=== PATIENT | male | born 1960 | race Caucasian/White ===

== ENCOUNTER 2021-06-08 09:16 | Emergency (ER) | payer BC, SELFPAY ==
[2021-06-08 09:19] VITALS: BP 158/97; PULSE 99; RESP 17; TEMP 37; O2SAT 92; BMI 37.0
[2021-06-08 09:38] VITALS: O2SAT 93
[2021-06-08 09:41] VITALS: BP 158/97; PULSE 99; RESP 16; TEMP 37; O2SAT 93
--- NOTE | 2021-06-08 10:05 | EDS_ITS ---
HPI History of Present Illness Chief Complaint: Cold Sx Informant: patient Narrative Narrative: Patient presents Requesting monoclonal therapy for Covid or referral. He has myalgias fever and a very slight cough. He had some nausea and diarrhea but those symptoms are gone. His first symptoms started on Friday the 04 of June. He has exposure to a son-in-law and daughter with Covid. Nothing makes his symptoms worse. Tylenol does help his symptoms. Although he is coughing he is not actually short of breath. No hemoptysis. No chronic medical conditions other than obesity No medications No allergies No recent surgery Non-smoker lives at home with [facility] Medical History no medical history Home Medications NK 06/08/21 [History Last Taken Unknown] Allergy/AdvReac Type Severity Reaction Status Date / Time No Known Allergies Allergy Verified 06/08/21 09:16 Surgical History no surgical history Social History Smoking Status: Never smoker ROS ROS ED Constitutional Constitutional ED: Reports fever(s) Eyes Eyes: Denies blurry vision ENT ENT ED: Reports rhinorrhea; Denies sore throat Cardiovascular Cardiovascular: Denies chest pain or palpitations Respiratory/Chest Respiratory/Chest: Reports cough; Denies dyspnea or sputum Gastrointestinal Gastrointestinal: Reports diarrhea and nausea; Denies abdominal pain or vomiting Genitourinary Genitourinary ED: Denies dysuria Musculoskeletal Musculoskeletal: Reports myalgias Integumentary Denies rash Neurologic Neurologic: Reports headache(s); Denies paresthesias or weakness Psychiatric Psychiatric: Denies depression Endocrine Endocrinology: Denies polydipsia or polyuria Hematologic/Lymphatic Hematologic/Lymphatic: Denies easy bleeding or easy bruising Allergic/Immunologic Allergic/Immunologic ED: Denies mouth swelling or urticaria EXAM Physical Exam Const Vital Signs: 06/08/21 09:19 06/08/21 09:38 06/08/21 09:41 Temperature 98.6 F 98.6 F Temperature Source Oral Temporal Pulse Rate 99 99 Respiratory Rate 17 16 Respiratory Effort Normal Non-Labored Respiratory Depth Normal Respiratory Pattern Normal Blood Pressure 158/97 H 158/97 H Blood Pressure Mean 117 117 Pulse Ox 92 93 Oxygen Delivery Method Room Air Room Air Room Air Positive well nourished and well developed General Appearance ED: well developed and NAD HEENT Reports moist mucous membranes atraumatic Eyes General Eye ED: Negative for pale conjunctiva or scleral icterus Neck no meningeal signs and no JVD Resp normal respiratory effort and clear to auscultation bilaterally Auscultation: Negative for rales, rhonchi or wheezes Cardio regular rate and regular rhythm GI non-tender and non-distended Palpation: soft Back/Spine no CVA tenderness and normal to inspection Extremity normal to inspection General Extremety ED: Negative for edema or tenderness General Extremity: Negative for edema Neuro Sensorium / Orientation: alert; Negative for lethargic or stuporous Psych mental status grossly normal Skin Lesions: no lesions Rashes: no rashes MDM MDM MDM Narrative Medical decision making narrative: Patient had a positive home Covid test on Friday. He then went to [facility] and had a PCR test done on Friday. He is supposed to get the results today. We discussed doing another test here but I believe his PCR is likely the better test. I will refer him to monoclonal therapy as he has symptoms of Covid, known exposure to Covid, one positive he does have O2 sat monitor at home and has been reading normal. Test and another one pending. I think he likely does have Covid. He has criteria and obesity for monoclonal therapy. Discharge Plan Triage Chief Complaint: Cold Sx ED Provider: Jonathon German Dx/Rx/DC Orders Clinical Impression: COVID Instructions: Caring for Someone Who Has COVID-19 Prescriptions: No Action NK RF: 0 Other Ambulatory Orders: COVID Outpatient Monoclonal Antibody Referral (Routine) Timeframe: 1 Day Facility: [facility] - Location: [facility] Ordered By: Dr. Jonathon German Primary Care Provider: Care Physician,No Primary Referrals: Care Physician,No Primary [Primary Care Provider] - Activity Restrictions/Additional Instructions: Follow-up with your primary physician and monoclonal therapy as scheduled. Return to the emergency department with worsening symptoms, dyspnea, decreasing oxygen saturations. Disposition Disposition: Home, Self Care
== END 2021-06-08 10:28 | disposition home or self-care (01) ==
PROVIDERS: Emergency Provider Emergency Medicine
DX: U07.1 COVID-19 (principal); E66.9 Obesity, unspecified
CPT/HCPCS: 99282

== ENCOUNTER 2021-06-11 09:05 | Outpatient (CLI) | payer BC, SELFPAY ==
[2021-06-11] MEDS: 0.9% Saline Lock 10 ML Syringe IV (09:26)
[2021-06-11 09:28] VITALS: BP 149/79; PULSE 92; RESP 18; TEMP 37.4; O2SAT 94; BMI 35.4
[2021-06-11 10:15] VITALS: BP 151/69; PULSE 95; RESP 18; TEMP 38.1; O2SAT 93
[2021-06-11 11:10] VITALS: BP 157/78; PULSE 98; RESP 18; TEMP 37.1; O2SAT 100
== END 2021-06-11 11:15 | disposition home or self-care (01) ==
LOC: MS3OUT 09:06 → MS3 09:06
PROVIDERS: Referring Provider Nurse Practitioner Acute Care; Visit Provider Nurse Practitioner Acute Care
DX: Z23 Encounter for immunization (principal); U07.1 COVID-19
CPT/HCPCS: J7050; M0245; Q0245; A4216

== ENCOUNTER 2021-06-12 08:17 | Emergency (ER) | payer BC, SELFPAY ==
[2021-06-12] VITALS (8 sets, daily range): BP systolic 129–143; BP diastolic 80–96; PULSE 71–89; RESP 20–22; TEMP 37–37.4; O2SAT 87–95; BMI 35.4
--- NOTE | 2021-06-12 08:32 | RAD_ITS ---
STUDY: X-RAY CHEST REASON FOR EXAM: Male, 60 years old. Increasing shortness of breath over the last week TECHNIQUE: AP COMPARISON: None. FINDINGS: EKG leads project over the chest. Multifocal infiltrates with features commonly reported with COVID pneumonia. There is no demonstrated pleural abnormality. Normal size heart. Normal mediastinum and alberto. Normal visualized pulmonary arteries. Normal visualized aortic arch and descending thoracic aorta. Normal visualized thoracic spine. Normal visualized ribs, clavicles, and shoulders. There is no demonstrated abnormality of the visualized soft tissue structures of the upper abdomen. RAD/Chest 1 View (Portable) IMPRESSION: Multifocal infiltrates with features commonly reported with COVID pneumonia. Electronically Signed: James Chu MD ([place]) at 9:11 EST , Service support ,
--- NOTE | 2021-06-12 08:33 | EDS_ITS ---
HPI History of Present Illness Chief Complaint: Shortness of Breath Informant: patient Onset/Context/Timing Onset: Days Context: gradual Timing: Continuous Quality: Positive for Dyspnea on exertion Current Severity: Mild Maximum Severity: Mild Worsened by: Exertion Relieved by: Nothing Associated Symptoms cough Chest Pain: Positive for None Narrative Narrative: 60-year-old male Covid positive symptoms he is on day 9. States he received monoclonal antibody therapy yesterday. He is just feeling more short of breath. No prior history of DVT or PE no hemoptysis. No chest pain. His symptoms of nausea and fevers is resolving. PE Risk Factors: Negative for Cancer, OCP + Smoking + > 35, Prior DVT or PE, Recent immobilization, Recent surgery and Recent travel Prior similar symptoms: No Recent Illness/Hospitalization: No PFSH PFSH Medical History (Updated 06/12/21 @ 10:[address] Juan M Richards MD) COVID-19 Medical History no medical history no medical history Home Medications dexamethasone [Decadron] 6 mg PO DAILY 10 Days #10 tab 06/12/21 [Rx Last Taken Unknown] Allergy/AdvReac Type Severity Reaction Status Date / Time No Known Allergies Allergy Verified 06/12/21 08:20 Social History Smoking Status: Never smoker ROS ROS ED ROS Narrative Cough. Fever is have resolved. Vomiting is resolved. Shortness of breath. Review of Systems ROS Unobtainable: Denies due to encephalopathy Constitutional Constitutional ED: Reports fever(s); Denies chills Eyes Eyes: Denies change in vision ENT ENT ED: Denies ear pain or sore throat Cardiovascular Cardiovascular: Denies chest pain Respiratory/Chest Respiratory/Chest: Reports cough and dyspnea Gastrointestinal Gastrointestinal: Reports nausea and vomiting; Denies abdominal pain or diarrhea Genitourinary Genitourinary ED: Denies dysuria Musculoskeletal Musculoskeletal: Reports myalgias Integumentary Denies rash Neurologic Neurologic: Denies headache(s) Psychiatric Psychiatric: Denies depression Endocrine Endocrinology: Denies polyuria Hematologic/Lymphatic Hematologic/Lymphatic: Denies easy bruising Allergic/Immunologic Allergic/Immunologic ED: Denies urticaria EXAM Physical Exam Narrative Exam Narrative: Middle-aged male no acute distress MS pulse ox listed as 87% on room air is obviously hypoxic. H EENT exam is unremarkable. Neck nontender. Lungs clear to auscultation bilaterally. Heart regular rhythm no murmur. Abdomen soft nontender. Patient moving all 4 extremities. Calves are nontender without edema or cords. Neurologically is awake and alert. Moving all 4 extremities. Const Vital Signs: 06/12/21 08:18 06/12/21 08:43 06/12/21 08:45 Temperature 98.6 F 98.6 F Temperature Source Temporal Temporal Pulse Rate 89 89 Respiratory Rate 20 H 20 H Respiratory Effort Short of Breath Labored Respiratory Depth Normal Respiratory Pattern Tachypnea Blood Pressure 143/96 H 143/96 H Blood Pressure Mean 111 111 Pulse Ox 87 90 Oxygen Delivery Method Room Air Room Air Oxygen Flow Rate (L/min) 06/12/21 09:37 06/12/21 10:21 Temperature 98.9 F Temperature Source Oral Pulse Rate 71 Respiratory Rate 22 H Respiratory Effort Respiratory Depth Respiratory Pattern Blood Pressure 129/80 H Blood Pressure Mean 96 Pulse Ox 88 95 Oxygen Delivery Method Nasal Cannula Nasal Cannula Oxygen Flow Rate (L/min) 2 2 Positive well nourished, well developed and obese; Negative for cachectic, contractures or unkempt General Appearance ED: well developed and NAD; Negative for unkempt, cachectic, contractures or pallor Nutritional Appearance: obese; Negative for cachectic HEENT Reports moist mucous membranes atraumatic; Negative for trauma or tenderness Eyes PERRL and EOMs intact bilaterally Neck no lymphadenopathy, supple, no meningeal signs and no JVD General: Negative for tenderness Resp normal respiratory effort and clear to auscultation bilaterally Auscultation: Negative for rales, rhonchi or wheezes Cardio regular rate, regular rhythm, S1 normal heart sound, S2 normal heart sound and no murmurs GI non-tender, non-distended and no masses Auscultation: normoactive bowel sounds Palpation: soft; Negative for tender, guarding or rebound tenderness present Back/Spine no CVA tenderness and normal to inspection General Back: Negative for CVA tenderness Extremity normal to inspection General Extremety ED: Negative for edema or tenderness General Extremity: Negative for edema Neuro oriented x3 Sensorium / Orientation: alert, oriented to person, oriented to place and oriented to time; Negative for orientation impaired, confused, lethargic or stuporous Motor Exam: strength 5/5 throughout Psych mental status grossly normal Appearance: Negative for unkempt Thought Process: normal thought process Skin no wounds General Skin Exam: Negative for jaundice or pallor Lesions: no lesions Rashes: no rashes MDM MDM MDM Narrative Medical decision making narrative: Middle-age male no acute distress. Pulse ox 87% on room air consistent with hypoxia. Tested Covid positive last week and has had symptoms now on his ninth day. He received monoclonal antibody therapy yesterday. He will be treated with p.o. Decadron. Labs and chest x-ray are being obtained. regulatory services consultant discussed with the patient and he is being set up with home oxygen. He will be discharged home on daily Decadron. Home oxygen. Outpatient follow-up. Again he has already received monoclonal antibody therapy. Repeat exam patient is doing well at 11:42 AM and is comfortable being discharged home. He knows return if worse. Lab Data Attestation: I reviewed the patient's lab results. Lab results narrative: CBC shows a normal white count of 6.9. Hemoglobin is 16. Platelets 195. Electrolytes unremarkable gap of 6 normal BUN and creatinine. Glucose of 141. Chest x-ray shows diffuse bilateral infiltrates consistent with Covid pneumonitis. Labs: Laboratory Results - last 24 hr 06/12/21 06/12/21 06/12/21 08:36 08:36 08:36 WBC 6.9 RBC 5.17 Hgb 16.0 Hct 46.2 MCV 89.4 MCH 30.9 MCHC 34.6 RDW Std Deviation 41.3 RDW Coeff of Idalmis 12.5 Plt Count 195 MPV 9.5 Immature Gran % (Auto) 0.400 Neut % (Auto) 74.0 H Lymph % (Auto) 17.7 L [place] % (Auto) 7.8 Eos % (Auto) 0.0 Baso % (Auto) 0.1 Absolute Neuts (auto) 5.1 Absolute Lymphs (auto) 1.22 Nucleated RBC % 0 D-Dimer Quant (PE/DVT) 0.68 H* Sodium 135 L Potassium 3.8 Chloride 103 Carbon Dioxide 26.0 Anion Gap 6 BUN 18 Creatinine 1.03 Estim Creat Clear Calc 77.22 Est GFR (MDRD) Af Amer 95 Est GFR (MDRD) Non-Af 78 BUN/Creatinine Ratio 17.5 Glucose 141 H Calcium 8.6 Radiography Chest X-Ray - ED: 1 View, Read by ED Physician, Read by Radiologist, Heart, Lungs, Mediastinum, Bony Structures, Right Infiltrate and Left Infiltrate Diagnostic Testing: Clinical Impression(s) from Imaging Studies Chest X-Ray 06/12/21 08:32 IMPRESSION: Multifocal infiltrates with features commonly reported with COVID pneumonia. Electronically Signed: James Chu MD (Brooks) at 9:11 EST , Service support , Chest CTA 06/12/21 10:20 IMPRESSION: No demonstrated PE, or thoracic aortic aneurysm or dissection Diffuse interstitial and airspace opacifications of both lung chavez without effusions. This is highly suggestive of Covid pneumonia. Chronic bronchitis Calcified coronary vessels Fatty liver Cholelithiasis Electronically Signed: Naren Savage MD at 11:14 EST , Service support , Portable chest x-ray single view interpreted both by myself and the radiologist shows bilateral infiltrates consistent with Covid pneumonitis. CT of the chest is read by the radiologist and reviewed by me shows Covid pneumonitis but no pulmonary emboli. Discharge Plan Triage Chief Complaint: Shortness of Breath ED Provider: Juan M Richards Dx/Rx/DC Orders Clinical Impression: COVID Instructions: Human Coronaviruses Prescriptions: New dexamethasone [Decadron] 6 mg tablet 6 mg PO DAILY 10 Days Qty: 10 RF: 0 Primary Care Provider: Care Physician,No Primary Referrals: Care Physician,No Primary [Primary Care Provider] - Activity Restrictions/Additional Instructions: Plenty of fluids and rest. Decadron daily to decrease the inflammation in your lungs. Follow-up with your doctor if not improving or return the emergency department if feeling a lot worse. Use the home oxygen 2 L at a time may turn it up as needed but if you are consistently above 4 L should need to come back to be reevaluated. Also return if you are feeling a lot worse or if your pulse ox is running below 90% consistently on the oxygen. Disposition Disposition: Home, Self Care
[2021-06-12] MEDS: dexAMETHasone 4 MG Tablet 6 MG PO (08:43)
[2021-06-12 08:45] LABS: Absolute Lymphocyte Count 1.22 X10^3/uL (0.83-4.51); Absolute Neutrophil Count 5.1 X10^3/uL (2.0-7.7); Basophil# 0.01 X10^3/uL; Basophil% 0.1 % (0-1); Hematocrit 46.2 % (40-54); Lymphocyte # 1.22 X10^3/ul (0.83-4.51); Lymphocyte % 17.7 % (19-41); Mean Corp Hgb Conc 34.6 g/dL (32-36); Mean Corpuscular Hgb 30.9 pg (27.0-32.0); Mean Corpuscular Volume 89.4 fL (80-94); Mean Platelet Vol. 9.5 fl (6.2-12.0); Monocyte# 0.54 X10^3/uL; Monocyte% 7.8 % (0-10); NRBC Flagged by Analyzer 0 % (0-5); Neutrophil # 5.09 X10^3/uL (2.7-7.7); Platelet Count 195 K/mm3 (150-450); RBC Distribution Width CV 12.5 % (11.6-14.6); RBC Distribution Width SD 41.3 fl (35.1-43.9); Red Blood Count 5.17 M/mm3 (4.6-6.2); White Blood Count 6.9 K/mm3 (4.4-11.0)
[2021-06-12 08:57] LABS: Anion Gap 6 (5-15); BUN 18 mg/dL (7-18); BUN/Creat Ratio 17.5 RATIO (10-20); Calcium,Total 8.6 mg/dL (8.5-10.1); Chloride 103 mmol/L (98-107); Creatinine, Serum 1.03 mg/dL (0.70-1.30); EST Glomerular Filtration Rate 78 mL/min (>60); Est Glom Filt Rate - Afr Amer 95 mL/min (>60); Estimated Creatinine Clearance 77.22 ml/min; Glucose 141 mg/dL (74-106); Potassium 3.8 mmol/L (3.5-5.1); Sodium Level 135 mmol/L (136-145)
[2021-06-12 10:18] LABS: D-Dimer Quantitative (DVT/PE) 0.68 FEU/ug/m (0.27-0.49)
--- NOTE | 2021-06-12 10:20 | CT_ITS ---
STUDY: CTA CHEST REASON FOR EXAM: Male, 60 years old. Hypoxia, elevated d-dimer RADIATION DOSAGE (If Supplied By Facility): CTDIvol = ( 13.85 ) mGy, DLP = ( 507.01 ) mGycm TECHNIQUE: The examination was performed with the intravenous administration of IV 100mL Isovue-370. Post-processing of the angiographic images was performed, with multiplanar reformation and 3D reconstruction. Individualized dose optimization techniques were used for this CT. COMPARISON: None. FINDINGS: Normal enhancement of the main pulmonary artery and right and left pulmonary arteries. Normal enhancement of the bilateral peripheral pulmonary arteries. There is no demonstrated pulmonary embolism. Normal thoracic aorta and visualized great vessels. There is no demonstrated aortic dissection. Normal heart and pericardium. There are calcifications of the coronary arteries. There are visualized mediastinal lymph nodes, which are within normal size limits, and with normal morphology. Normal hilar regions. There is peribronchial thickening. The lungs are well expanded. Diffuse interstitial and airspace opacifications scattered throughout both lung chavez without effusions. This pattern of opacification is consistent with and suspicious for Covid pneumonia. Normal pleura. Normal chest wall structures. There are degenerative changes of thoracic spine. Limited cuts through the upper abdomen show fatty infiltration of the liver and multiple gallstones CT/CTA Chest W/WO Contrast IMPRESSION: No demonstrated PE, or thoracic aortic aneurysm or dissection Diffuse interstitial and airspace opacifications of both lung chavez without effusions. This is highly suggestive of Covid pneumonia. Chronic bronchitis Calcified coronary vessels Fatty liver Cholelithiasis Electronically Signed: Naren Savage MD at 11:14 EST , Service support ,
--- NOTE | 2021-06-12 11:43 | CM.ED ---
Addendum entered by Josie Sanford 06/12/21 16:48: ROYAL refaxed the referral and made multiple phone calls and left voice mail for Martínez at [facility]. Martínez called back and said that the compressed air pile driver operator is on his way and will be here in 45 minutes. He said that they will call to come and set up service in the home as the provider is from [facility]. ROYAL updated RN and emt/dispatcher Josie DAHL Original Note: ROYAL Note ROYAL was advised by staff that patient needs home oxygen. ROYAL called [facility] reports that they do not have home oxygen and that this senior writer needs to look elsewhere. ROYAL called [facility] and spoke to Martínez. They have home oxygen . ROYAL faxed referral to [facility]. ROYAL will wait to hear from from airborne and air delivery specialist for update, per Martínez. ROYAL updated emt/dispatcher. Plan: Home Oxygen Josie DAHL
--- NOTE | 2021-06-13 14:30 | CASEMGMT ---
MARIOLA BUTTS ED COVID Home O2 Follow-up: MARIOLA BUTTS attempted to complete follow-up phone call. No answer, voice message left with return contact information.
--- NOTE | 2021-06-15 14:12 | CASEMGMT ---
AMRIOLA BUTTS ED COVID Home O2 Follow-up: This RN CM contacted pt via phone regarding home O2 set-up. Pt states he is doing fine. Denies any SOB. Report his PO to be 92% on 2.5-3l/min. Pt states he is eating, drinking, and taking the decadron as prescribed. Pt states he has not contacted Dr. Foley or Dr. Friedman for a follow-up appointment. Pt provided Dr. Foley's office phone number to schedule follow-up. Pt denies any further questions or concerns at this time. Gia Dougherty RN CM
== END 2021-06-12 17:27 | disposition home or self-care (01) ==
PROVIDERS: Emergency Provider Emergency Medicine
DX: U07.1 COVID-19 (principal); J12.82 Pneumonia due to coronavirus disease 2019; R09.02 Hypoxemia; E66.9 Obesity, unspecified
CPT/HCPCS: 71045; 71275; 80048; 85025; 85379; 99284; Q9967

== ENCOUNTER 2021-06-17 08:51 | Inpatient (IN) | payer BC, SELFPAY ==
[2021-06-17] VITALS (17 sets, daily range): BP systolic 112–128; BP diastolic 71–87; PULSE 65–102; RESP 18–37; TEMP 35.9–37.3; O2SAT 87–96; BMI 34.8; BMI 33.7
--- NOTE | 2021-06-17 09:16 | EKG12_ITS ---
Test Reason : SOB Blood Pressure : / mmHG Vent. Rate : 080 BPM Atrial Rate : 080 BPM P-R Int : 178 ms QRS Dur : 102 ms QT Int : 380 ms P-R-T Axes : 041 -14 002 degrees QTc Int : 438 ms Normal sinus rhythm Normal ECG Confirmed by THEODORE CASAS, GILDA ([id number]), newspaper managing editor FLO STEVEN ([id number]) on 06/19/2021 9:13:08 AM Referred By: ADELA Confirmed By:GILDA JAIMES MD
--- NOTE | 2021-06-17 09:16 | CT_ITS ---
STUDY: CTA CHEST REASON FOR EXAM: Male, 60 years old. SOB, Hypoxia RADIATION DOSAGE (If Supplied By Facility): CTDIvol = ( 14.91 ) mGy, DLP = ( 552.42 ) mGycm TECHNIQUE: The examination was performed with the intravenous administration of IV 100mL Isovue-370. Post-processing of the angiographic images was performed, with multiplanar reformation and 3D reconstruction. Individualized dose optimization techniques were used for this CT. COMPARISON: CT angiogram chest June 12, 2021, chest x-ray June 12, 2021 FINDINGS: Normal enhancement of the main pulmonary artery and right and left pulmonary arteries. Normal enhancement of the bilateral peripheral pulmonary arteries. There is no demonstrated pulmonary embolism. There is a bovine arch or common take off of the bilateral common carotid arteries. The left vertebral artery has its takeoff low at the level of the subclavian at the arch. There is no demonstrated aortic dissection. There is mild cardiac enlargement there is coronary calcification. There are nonspecific reactive lymph nodes in the mediastinum. Normal hilar regions. Normal visualized trachea and bronchi. There persistent multifocal groundglass opacities throughout the lungs. This is worse in the left apex and left lung base compared to prior study. Normal pleura. Normal chest wall structures. There are degenerative changes of thoracic spine. The liver is enlarged and fatty infiltrated. There are multiple gallstones in the gallbladder measuring up to 2 cm. IMPRESSION : Multifocal pneumonia suspicious for persistent slightly worse Covid pneumonia. No pulmonary embolism. Mild cardiac enlargement and coronary calcification. Hepatic steatosis. Cholelithiasis. Electronically Signed: Carol Araujo MD at 9:55 EST Tel , Service support , CT/CTA Chest W/WO Contrast
--- NOTE | 2021-06-17 09:17 | ED.VIS.DYS ---
HPI History of Present Illness Chief Complaint: Shortness of Breath Informant: patient and spouse/S.O. Narrative Narrative: This patient returns with worsening hypoxia and dyspnea. He started Covid symptoms on the of this month. He has been on Decadron and home oxygen for about 5 days. He has been on 4 L and his sats have been dropping to about 87%. He dropped to 84% on 4 L here. He is not having chest pain. He has no nausea vomiting diarrhea although his appetite is a bit down. He has been eating yogurt applesauce and drinking fluids. No significant myalgias. He is not having chest pain. No history of DVT or PE. He has had some travels in the [place] and to [place] within the last few months though. He is on Decadron. He did have monoclonal therapy as an outpatient. He did not have a vaccine. [facility] Medical History COVID-19 Home Medications dexamethasone [Decadron] 6 mg PO DAILY 10 Days #10 tab 06/12/21 [Rx Last Taken Unknown] Allergy/AdvReac Type Severity Reaction Status Date / Time No Known Allergies Allergy Verified 06/17/21 08:51 Social History Smoking Status: Never smoker ROS ROS ED Constitutional Constitutional ED: Reports chills Eyes Eyes: Denies change in vision ENT ENT ED: Denies rhinorrhea Cardiovascular Cardiovascular: Denies chest pain Respiratory/Chest Respiratory/Chest: Reports cough and dyspnea; Denies sputum Gastrointestinal Gastrointestinal: Denies abdominal pain, diarrhea, nausea or vomiting Genitourinary Genitourinary ED: Denies dysuria Musculoskeletal Musculoskeletal: Denies myalgias Integumentary Denies rash Neurologic Neurologic: Reports other Details: No focal weakness but he does have generalized weakness and malaise. ; Denies headache(s), paresthesias or weakness Endocrine Endocrinology: Denies polydipsia or polyuria Hematologic/Lymphatic Hematologic/Lymphatic: Denies easy bleeding or easy bruising Allergic/Immunologic Allergic/Immunologic ED: Denies mouth swelling or urticaria EXAM Physical Exam Const Vital Signs: 06/17/21 08:52 06/17/21 08:53 06/17/21 09:00 Temperature 96.6 F L 96.6 F L Temperature Source Temporal Temporal Pulse Rate 102 H 102 H Respiratory Rate 24 H 24 H Respiratory Effort Short of Breath Labored Blood Pressure 124/87 H 124/87 H Blood Pressure Mean 99 99 Pulse Ox 87 87 Oxygen Delivery Method Nasal Cannula Nasal Cannula Nasal Cannula Oxygen Flow Rate (L/min) 4 7 7 06/17/21 09:33 06/17/21 09:53 06/17/21 10:00 Temperature 98.9 F 98.9 F Temperature Source Temporal Temporal Pulse Rate 68 68 Respiratory Rate 37 H 37 H Respiratory Effort Blood Pressure 112/77 112/77 Blood Pressure Mean 88 88 Pulse Ox 93 92 92 Oxygen Delivery Method Nasal Cannula Nasal Cannula Oxygen Flow Rate (L/min) 7 7 7 Patient looks ill. His saturations are 91% on his 7 L now. He is awake alert appropriate not lethargic or sleepy. Positive well nourished and well developed General Appearance ED: well developed HEENT Reports dry mucous membranes HEENT Narrative: Mildly dry mucous membranes atraumatic Mouth ED: Yes dry mucous membranes Mouth: dry mucous membranes Eyes General Eye ED: Negative for pale conjunctiva or scleral icterus Neck no JVD Resp No normal respiratory effort and No clear to auscultation bilaterally Auscultation: rhonchi Cardio regular rate Rate: tachycardic GI non-tender and non-distended Palpation: soft Back/Spine no CVA tenderness Extremity General Extremety ED: Negative for edema or tenderness General Extremity: Negative for edema Neuro oriented x3 Sensorium / Orientation: alert Psych mental status grossly normal Skin Lesions: no lesions Rashes: no rashes MDM MDM MDM Narrative Medical decision making narrative: Patient's blood count shows hemoglobin 16.9. This might be a little hemoconcentration. White count is slightly elevated. Also due to hemoconcentration as well as steroid effect. Electrolytes overall look good. Glucose is mildly elevated 152. Lactate is high normal at 2.0. LFTs show no marked abnormalities. Troponin is negative. Procalcitonin is normal. ET scan of the chest shows signs of Covid but no sign of pulmonary embolus. However, patient is satting about 92% on 7 L. He desatted to 84% on 4 L. He is too hypoxic to send back home. I have hospitalist on page Lab Data Labs: Laboratory Results - last 24 hr 06/17/21 06/17/21 06/17/21 09:10 09:10 09:10 WBC 11.9 H RBC 5.59 Hgb 16.9 H Hct 48.3 MCV 86.4 MCH 30.2 MCHC 35.0 RDW Std Deviation 38.3 RDW Coeff of Idalmis 12.1 Plt Count 449 MPV 9.1 Immature Gran % (Auto) 0.400 Neut % (Auto) 74.5 H Lymph % (Auto) 11.4 L Butts % (Auto) 12.0 H Eos % (Auto) 1.4 Baso % (Auto) 0.3 Absolute Neuts (auto) 8.9 H Absolute Lymphs (auto) 1.36 Nucleated RBC % 0 Sodium 137 Potassium 3.6 Chloride 107 Carbon Dioxide 21.0 Anion Gap 9 BUN 26 H Creatinine 1.07 Estim Creat Clear Calc 74.33 Est GFR (MDRD) Af Amer 91 Est GFR (MDRD) Non-Af 75 BUN/Creatinine Ratio 24.3 H Glucose 152 H Lactic Acid 2.0 Calcium 9.4 Total Bilirubin 1.00 AST 47 H ALT 106 H Alkaline Phosphatase 68 Troponin I High Sens 5 Total Protein 7.8 Albumin 3.0 L Globulin 4.8 H Albumin/Globulin Ratio 0.6 L Procalcitonin 06/17/21 09:10 WBC RBC Hgb Hct MCV MCH MCHC RDW Std Deviation RDW Coeff of Idalmis Plt Count MPV Immature Gran % (Auto) Neut % (Auto) Lymph % (Auto) Butts % (Auto) Eos % (Auto) Baso % (Auto) Absolute Neuts (auto) Absolute Lymphs (auto) Nucleated RBC % Sodium Potassium Chloride Carbon Dioxide Anion Gap BUN Creatinine Estim Creat Clear Calc Est GFR (MDRD) Af Amer Est GFR (MDRD) Non-Af BUN/Creatinine Ratio Glucose Lactic Acid Calcium Total Bilirubin AST ALT Alkaline Phosphatase Troponin I High Sens Total Protein Albumin Globulin Albumin/Globulin Ratio Procalcitonin 0.08 Radiography Diagnostic Testing: Clinical Impression(s) from Imaging Studies Chest CTA 06/17/21 09:16 Discharge Plan Triage Chief Complaint: Shortness of Breath ED Provider: Jonathon German Dx/Rx/DC Orders Clinical Impression: Pneumonia due to 2019 novel coronavirus, Acute respiratory failure with hypoxia Prescriptions: No Action dexamethasone [Decadron] 6 mg tablet 6 mg PO DAILY 10 Days Qty: 10 RF: 0 Primary Care Provider: Care Physician,No Primary Referrals: Care Physician,No Primary [Primary Care Provider] - Disposition Disposition: Acute Care [facility]
[2021-06-17 09:24] LABS: Absolute Lymphocyte Count 1.36 X10^3/uL (0.83-4.51); Absolute Neutrophil Count 8.9 X10^3/uL (2.0-7.7); Basophil# 0.03 X10^3/uL; Basophil% 0.3 % (0-1); Eosinophil# 0.17 X10^3/uL; Eosinophils% 1.4 % (0-5); Hematocrit 48.3 % (40-54); Hemoglobin 16.9 g/dL (13.0-16.5); Lymphocyte # 1.36 X10^3/ul (0.83-4.51); Lymphocyte % 11.4 % (19-41); Mean Corpuscular Hgb 30.2 pg (27.0-32.0); Mean Corpuscular Volume 86.4 fL (80-94); Mean Platelet Vol. 9.1 fl (6.2-12.0); Monocyte# 1.43 X10^3/uL; NRBC Flagged by Analyzer 0 % (0-5); Neutrophil # 8.87 X10^3/uL (2.7-7.7); Neutrophil % 74.5 % (47-70); Platelet Count 449 K/mm3 (150-450); RBC Distribution Width CV 12.1 % (11.6-14.6); RBC Distribution Width SD 38.3 fl (35.1-43.9); Red Blood Count 5.59 M/mm3 (4.6-6.2); White Blood Count 11.9 K/mm3 (4.4-11.0)
[2021-06-17 09:51] LABS: ALB/GLOB Ratio 0.6 RATIO (0.9-2.4); AST(SGOT) 47 U/L (15-37); Alanine Aminotransfer ALT/SGPT 106 U/L (16-61); Alkaline Phosphatase 68 U/L (45-117); Anion Gap 9 (5-15); BUN 26 mg/dL (7-18); BUN/Creat Ratio 24.3 RATIO (10-20); Calcium,Total 9.4 mg/dL (8.5-10.1); Chloride 107 mmol/L (98-107); Creatinine, Serum 1.07 mg/dL (0.70-1.30); EST Glomerular Filtration Rate 75 mL/min (>60); Est Glom Filt Rate - Afr Amer 91 mL/min (>60); Estimated Creatinine Clearance 74.33 ml/min; Globulin 4.8 g/dL (2.2-4.2); Glucose 152 mg/dL (74-106); Potassium 3.6 mmol/L (3.5-5.1); Protein, Total 7.8 g/dL (6.4-8.2); Sodium Level 137 mmol/L (136-145); Troponin-I HS 5 pg/mL (3.0-78.0)
[2021-06-17 09:56] LABS: Procalcitonin 0.08 ng/mL (0.00-0.09)
[2021-06-17] MEDS: Furosemide 20 MG/2 ML VIAL IV (11:09)
[2021-06-17 13:21] LABS: Reflex Lactate? Y
[2021-06-17 14:19] LABS: Lactic Acid 1.4 mmol/L (0.4-1.9)
--- NOTE | 2021-06-17 15:48 | HP.PCM.HOS_ITS ---
HPI - General General Date of Admission: 06/17/21 HPI Narrative LEONCIO MUHAMMAD, is a 60 M who presents to the hospital with increasing shortness of breath. He started having symptoms for Covid around 06/04/2021 and then had monoclonal antibody infusion. He is unvaccinated. He had come to the hospital previously and was discharged on some oxygen as well as Decadron. He is taking for 5 doses of the Decadron prior to coming into the hospital but he has had increasing oxygen requirements at home for the last several days. He had a states that he feels fine, denies any fevers or chills. In the ER he did have a CTA of his chest which was negative for PE. [facility] Medical History (Updated 06/17/21 @ 15:[address] Valentino Arora MD) Skin cancer Home Medications dexamethasone [Decadron] 6 mg PO DAILY 10 Days #10 tab 06/12/21 [Rx Last Taken Unknown] Allergy/AdvReac Type Severity Reaction Status Date / Time No Known Allergies Allergy Verified 06/17/21 08:51 Family History (Updated 06/17/21 @ 15:[address] Valentino Arora MD) Other Heart disease no surgical history Social History Smoking Status: Never smoker ROS Constitutional Constitutional: Reports chills; Denies fatigue, fever(s) or malaise Eyes Eyes: Denies blurry vision ENT HEENT: Denies headache(s) or nasal discharge Cardiovascular Cardiovascular: Denies chest pain, dyspnea on exertion or syncope Respiratory/Chest Respiratory/Chest: Reports cough and shortness of breath at rest; Denies shortness of breath with exertion Gastrointestinal Gastrointestinal: Denies constipation, diarrhea, nausea or vomiting Genitourinary Genitourinary: Denies dysuria Neurologic Neurologic: Denies focal weakness, numbness or tremor(s) Psychiatric Psychiatric: Denies anxiety or depression Vital Signs Vital Signs Vital Signs: 06/17/21 08:52 06/17/21 08:53 06/17/21 09:00 Temperature 96.6 F L 96.6 F L Temperature Source Temporal Temporal Pulse Rate 102 H 102 H Respiratory Rate 24 H 24 H Respiratory Effort Short of Breath Labored Respiratory Depth Respiratory Pattern Blood Pressure 124/87 H 124/87 H Blood Pressure Mean 99 99 Blood Pressure Source Blood Pressure Position Blood Pressure Location Pulse Ox 87 87 Oxygen Delivery Method Nasal Cannula Nasal Cannula Nasal Cannula Oxygen Flow Rate (L/min) 4 7 7 06/17/21 09:33 06/17/21 09:53 06/17/21 10:00 Temperature 98.9 F 98.9 F Temperature Source Temporal Temporal Pulse Rate 68 68 Respiratory Rate 37 H 37 H Respiratory Effort Respiratory Depth Respiratory Pattern Blood Pressure 112/77 112/77 Blood Pressure Mean 88 88 Blood Pressure Source Blood Pressure Position Blood Pressure Location Pulse Ox 93 92 92 Oxygen Delivery Method Nasal Cannula Nasal Cannula Oxygen Flow Rate (L/min) 7 7 7 06/17/21 10:59 06/17/21 11:00 06/17/21 12:00 Temperature 98.9 F 98.9 F Temperature Source Temporal Temporal Pulse Rate 80 80 Respiratory Rate 20 H 20 H Respiratory Effort Respiratory Depth Respiratory Pattern Blood Pressure 128/81 H 128/81 H Blood Pressure Mean 96 96 Blood Pressure Source Blood Pressure Position Blood Pressure Location Pulse Ox 92 92 92 Oxygen Delivery Method Nasal Cannula Nasal Cannula Oxygen Flow Rate (L/min) 7 7 06/17/21 12:35 06/17/21 13:14 06/17/21 13:17 Temperature 97.9 F Temperature Source Temporal Pulse Rate 80 Respiratory Rate 18 18 Respiratory Effort Normal Respiratory Depth Normal Respiratory Pattern Normal Blood Pressure 114/71 Blood Pressure Mean 85 Blood Pressure Source Monitor Blood Pressure Position Semi-Fowlers Blood Pressure Location Left Arm Pulse Ox 93 96 Oxygen Delivery Method Nasal Cannula Nasal Cannula High Flow Oxygen Flow Rate (L/min) 7 8 8 Weight Weight: 229 lb Body Mass Index (BMI) 33.7 Physical Exam Const alert, oriented x3 and no apparent distress General Appearance: cooperative HEENT normocephalic and moist oral mucous membranes Eyes PERRL, EOMs intact bilaterally and conjunctivae normal Neck supple and no JVD Resp normal respiratory effort, no retractions, no use of accessory muscles and clear to auscultation bilaterally Auscultation: crackles; Negative for rales, rhonchi or wheezes Cardio regular rate, regular rhythm, S1 normal heart sound, S2 normal heart sound and no murmurs GI soft to palpation, non-tender and non-distended; Negative for hepatosplenomegaly Extremity no clubbing, cyanosis or edema Skin no rashes or lesions noted Neuro no focal motor deficits and no sensory deficits noted Psych affect normal Appearance: appropriate Results Lab / Micro Data Result Diagrams: 06/17/21 09:10 06/17/21 09:10 Labs: Laboratory Results - last 24 hr 06/17/21 09:10: WBC 11.9 H, RBC 5.59, Hgb 16.9 H, Hct 48.3, MCV 86.4, MCH 30.2, MCHC 35.0, RDW Std Deviation 38.3, RDW Coeff of Idalmis 12.1, Plt Count 449, MPV 9.1, Immature Gran % (Auto) 0.400, Neut % (Auto) 74.5 H, Lymph % (Auto) 11.4 L, [place] % (Auto) 12.0 H, Eos % (Auto) 1.4, Baso % (Auto) 0.3, Absolute Neuts (auto) 8.9 H, Absolute Lymphs (auto) 1.36, Nucleated RBC % 0 06/17/21 09:10: Sodium 137, Potassium 3.6, Chloride 107, Carbon Dioxide 21.0, A nion Gap 9, BUN 26 H, Creatinine 1.07, Estim Creat Clear Calc 74.33, Est GFR (MDRD) Af Amer 91, Est GFR (MDRD) Non-Af 75, BUN/Creatinine Ratio 24.3 H, Glucose 152 H, Calcium 9.4, Total Bilirubin 1.00, AST 47 H, ALT 106 H, Alkaline Phosphatase 68, Troponin I High Sens 5, Total Protein 7.8, Albumin 3.0 L, Globulin 4.8 H, Albumin/Globulin Ratio 0.6 L 06/17/21 09:10: Lactic Acid 2.0 06/17/21 09:10: Procalcitonin 0.08 06/17/21 13:39: Lactic Acid 1.4 Radiology Impression Chest CTA 06/17/21 09:16 Assessment & Plan Assessment/Plan (1) Acute respiratory failure with hypoxia: (2) Pneumonia due to 2019 novel coronavirus: PLAN: 1. Acute hypoxic respiratory failure secondary to COVID-19 pneumonia ?Continue with Decadron, he is not in the window of remdesivir ?Continue with incentive spirometry and Pep ?He did receive a dose of Lasix in the ER secondary to rhonchi/crackles ?We will continue to monitor renal function is stable and he may need as needed Lasix going forward ?Given his worsening, will send off for sputum culture ?I do encourage that he received the vaccination when able DVT: Lovenox Charges/Coding Visit Charges Inpatient E&M: 84213 Init Hosp L2
[2021-06-17] MEDS: Sodium Chloride 0.65% 1 SPRAY SPRAY.BTL 2 SPRAY NASAL (18:36)
[2021-06-17] MEDS: 0.9% Saline Lock 10 ML Syringe IV (20:51)
[2021-06-17] MEDS: Enoxaparin 30 MG/0.3 ML Syringe SC (20:51)
--- NOTE | 2021-06-17 23:56 | PCS.PANDOC ---
PANDEMIC DOCUMENTATION INITIATED: Date: 06/17/2021 Time: 190
[2021-06-18] VITALS (18 sets, daily range): BP systolic 104–149; BP diastolic 66–93; PULSE 55–94; RESP 14–22; TEMP 36.4–36.8; O2SAT 83–96
[2021-06-18] MEDS: Acetaminophen 325 MG Tablet 650 MG PO ×2 (03:57→14:04)
[2021-06-18 07:49] LABS: Absolute Lymphocyte Count 1.37 X10^3/uL (0.83-4.51); Basophil# 0.02 X10^3/uL; Basophil% 0.2 % (0-1); Eosinophil# 0.35 X10^3/uL; Eosinophils% 2.6 % (0-5); Hematocrit 47.4 % (40-54); Hemoglobin 16.7 g/dL (13.0-16.5); Lymphocyte # 1.37 X10^3/ul (0.83-4.51); Lymphocyte % 10.3 % (19-41); Mean Corp Hgb Conc 35.2 g/dL (32-36); Mean Corpuscular Hgb 30.7 pg (27.0-32.0); Mean Corpuscular Volume 87.1 fL (80-94); Mean Platelet Vol. 9.1 fl (6.2-12.0); Monocyte# 1.46 X10^3/uL; NRBC Flagged by Analyzer 0 % (0-5); Neutrophil # 10.03 X10^3/uL (2.7-7.7); Neutrophil % 75.4 % (47-70); Platelet Count 472 K/mm3 (150-450); RBC Distribution Width CV 12.4 % (11.6-14.6); Red Blood Count 5.44 M/mm3 (4.6-6.2); White Blood Count 13.3 K/mm3 (4.4-11.0)
[2021-06-18 08:17] LABS: Anion Gap 9 (5-15); BUN 29 mg/dL (7-18); BUN/Creat Ratio 28.7 RATIO (10-20); Calcium,Total 8.9 mg/dL (8.5-10.1); Chloride 105 mmol/L (98-107); Creatinine, Serum 1.01 mg/dL (0.70-1.30); EST Glomerular Filtration Rate 80 mL/min (>60); Est Glom Filt Rate - Afr Amer 97 mL/min (>60); Estimated Creatinine Clearance 78.75 ml/min; Glucose 110 mg/dL (74-106); Potassium 3.9 mmol/L (3.5-5.1); Sodium Level 137 mmol/L (136-145)
[2021-06-18] MEDS: Enoxaparin 30 MG/0.3 ML Syringe SC ×2 (08:55→21:07)
[2021-06-18] MEDS: dexAMETHasone 4 MG Tablet 6 MG PO (08:56)
[2021-06-18] MEDS: Sodium Chloride 0.65% 1 SPRAY SPRAY.BTL 2 SPRAY NASAL (09:01)
--- NOTE | 2021-06-18 09:50 | CASEMGMT ---
MARIOLA BUTTS Assessment: Face to Face with pt for initial transition planning/care coordination assessment. RN BECKIE introduced self and role at [facility], pt voices understanding and consents to assessment. Pt is A/O x4 and answers all questions appropriately at this time. Pt lying prone with O2 on in no distress. Care providers, pharmacy, and demographics verified/updated. Admitting Dx: COVID PCP:Pt denies having a PCP, states he is working on getting a PCP but has not heard back from [facility]. Asked if he would like CM to fax a request and he would. Specialists: dayton Dumont Preferred Pharmacy: [facility] Retail while inpatient Insurance: [place] Prescription Benefit: yes LW/HPOA: Pt denies having a LW/DPOA and denies need for info regarding AD. LNOK: Georgina Eldridge, Living Arrangements: Pt lives with in a two story house with 3 steps to enter with rail. Pt reports he is I in ADL's and denies concerns at home. Transportation: Pt drives self and denies concerns with transportation. DME/HHC/SNF: Pt has oxygen through [employer] set up from [facility] ER at 4L cont with portable tank in room. Pt denies hx of HHC or SNF stays. Pt states he was first tested for COVID at [facility]. Pt tried to obtain positive result but could not access it. He states that the hospital was given his positive test because he needed it for the monoclonal infusion. Pt was positive but is out of quarantine. He does have family who can provide him with groceries and supplies. Pt states no concerns with going home at time of dc. Pt states no further concerns/needs. CM to follow. Advised pt to ask CM if any further question/concerns/needs arise, voices understanding. Pt Goal: Home Plan: Home, will monitor for increased need of O2.
--- NOTE | 2021-06-18 12:53 | NURSING ---
call resp to place pt on airvo
--- NOTE | 2021-06-18 20:28 | PCM.PN.HOSP ---
Subjective Subjective Patient was seen and examined today, he remains on Airvo, he does not complain of any shortness of breath at rest. Objective Data Objective Data Vital Signs: Vital Signs Temp Pulse Resp BP Pulse Ox 97.5 F L 86 16 104/66 94 06/18/21 14:07 06/18/21 14:07 06/18/21 14:07 06/18/21 14:07 06/18/21 14:07 Oxygen Flow Rate (L/min) 50 Oxygen Delivery Method Airvo Weight: 103.8 kg Body Mass Index (BMI) 33.7 Intake & Output: Intake and Output for Last 24 Hours 06/16/21 06/17/21 06/18/21 23:59 23:59 23:59 Intake Total 500 / 500 750 / 750 Output Total 750 / 750 1000 / 1000 Balance -250 / -250 -250 / -250 Lab / Micro Data Result Diagrams: 06/18/21 07:35 06/18/21 07:35 Labs: Laboratory Results - last 24 hr 06/18/21 07:35: WBC 13.3 H, RBC 5.44, Hgb 16.7 H, Hct 47.4, MCV 87.1, MCH 30.7, MCHC 35.2, RDW Std Deviation 39.0, RDW Coeff of Idalmis 12.4, Plt Count 472 H, MPV 9.1, Immature Gran % (Auto) 0.500, Neut % (Auto) 75.4 H, Lymph % (Auto) 10.3 L, [place] % (Auto) 11.0 H, Eos % (Auto) 2.6, Baso % (Auto) 0.2, Absolute Neuts (auto) 10.0 H, Absolute Lymphs (auto) 1.37, Nucleated RBC % 0 06/18/21 07:35: Sodium 137, Potassium 3.9, Chloride 105, Carbon Dioxide 23.0, Anion Gap 9, BUN 29 H, Creatinine 1.01, Estim Creat Clear Calc 78.75, Est GFR (MDRD) Af Amer 97, Est GFR (MDRD) Non-Af 80, BUN/Creatinine Ratio 28.7 H, Glucose 110 H, Calcium 8.9 Micro: Microbiology 06/17/21 18:30 Sputum, Expectorated/Coughed Gram Stain - Final 06/17/21 18:30 Sputum, Expectorated/Coughed Respiratory Culture - Preliminary Appears to be normal respiratory kemal. Further studies to follow. Physical Exam Const alert, oriented x3, no apparent distress and healthy appearing General Appearance: cooperative, well kempt and well developed Orientation / Consciousness: awake, oriented to person, oriented to place and oriented to time HEENT normocephalic, head/scalp atraumatic and moist oral mucous membranes Head and Scalp: normocephalic Eyes PERRL, EOMs intact bilaterally and conjunctivae normal Neck nuchal rigidity, supple, no JVD, thyroid normal and no carotid bruits General: trachea midline Resp normal respiratory effort, no retractions, no use of accessory muscles and clear to auscultation bilaterally Auscultation: Negative for rales, rhonchi or wheezes Cardio regular rate, regular rhythm, S1 normal heart sound, S2 normal heart sound, no murmurs, no rub and no gallops GI normal to inspection, nondistended, normoactive bowel sounds, soft to palpation, non-tender and non-distended Extremity no clubbing, cyanosis or edema Skin no rashes or lesions noted General Skin Exam: no breakdown Neuro oriented x3, CN's II-XII intact bilaterally, no focal motor deficits and no sensory deficits noted Sensorium / Orientation: awake and alert Speech: speech normal Psych thought process normal and affect normal Assessment & Plan Assessment/Plan (1) Pneumonia due to 2019 novel coronavirus: PLAN: 1. COVID-19 pneumonia-continue dexamethasone, patient is out of the window for remdesivir. Patient had outpatient monoclonal antibodies given #2 acute hypoxic respiratory failure-pulse ox will be monitored Charges/Coding Visit Charges Inpatient E&M: 30433 Subs Hosp L2
[2021-06-18] MEDS: MELATONIN 3 MG TABLET PO (21:07)
[2021-06-19] VITALS (10 sets, daily range): BP systolic 119–147; BP diastolic 71–92; PULSE 63–89; RESP 16–24; TEMP 36.3–37; O2SAT 92–97
[2021-06-19] MEDS: Enoxaparin 30 MG/0.3 ML Syringe SC ×2 (08:21→21:50)
[2021-06-19] MEDS: Acetaminophen 325 MG Tablet 650 MG PO (08:22)
[2021-06-19] MEDS: dexAMETHasone 4 MG Tablet 6 MG PO (08:22)
--- NOTE | 2021-06-19 10:02 | NURSING ---
Assisted patient back to bed per request. pt laying prone in the bed at this time. pt denies further needs at this time. callight in reach.
--- NOTE | 2021-06-19 12:25 | CASEMGMT ---
Social Work Note SW updated that pt is requesting to complete advanced directives. SW in to speak with pt. Pt completed HCPOA and LW. Pt denied additional needs or concerns at this time. Rowena Denton G[employer]ENDER, [employer]
--- NOTE | 2021-06-19 12:56 | CASEMGMT ---
Faxed request for new pt to [facility] at this time.
[2021-06-19] MEDS: HYDROcodone Bitartrate/Apap 5/325 Tablet PO (16:06)
--- NOTE | 2021-06-19 19:56 | PN.HOSP_ITS ---
Subjective Subjective Patient was seen and examined today, he is currently on Airvo, he is lying prone in bed and does not appear to be in any respiratory distress. Patient requested some pain medication for generalized aches and pains, I have placed him on [place] as needed. Objective Data Objective Data Vital Signs: Vital Signs Temp Pulse Resp BP Pulse Ox 98.2 F 69 16 121/71 H 92 06/19/21 16:07 06/19/21 16:07 06/19/21 16:07 06/19/21 16:07 06/19/21 16:07 Oxygen Flow Rate (L/min) 50 Oxygen Delivery Method Airvo Weight: 103.5 kg Body Mass Index (BMI) 33.7 Intake & Output: Intake and Output for Last 24 Hours 06/17/21 06/18/21 06/19/21 23:59 23:59 23:59 Intake Total 500 / 500 750 / 750 350 / 350 Output Total 750 / 750 1100 / 1100 750 / 750 Balance -250 / -250 -350 / -350 -400 / -400 Lab / Micro Data Result Diagrams: 06/18/21 07:35 06/18/21 07:35 Micro: Microbiology 06/17/21 09:35 Blood Culture (Wb) #2 - No Site/Description Given Blood Culture - Preliminary No growth in 48 hours. 06/17/21 09:10 Blood Culture (Wb) - Anticubital Left Blood Culture - Preliminary No growth in 48 hours. 06/17/21 18:30 Sputum, Expectorated/Coughed Gram Stain - Final 06/17/21 18:30 Sputum, Expectorated/Coughed Respiratory Culture - Preliminary Appears to be normal respiratory kemal. Further studies to follow. Physical Exam Const alert, oriented x3, no apparent distress and healthy appearing General Appearance: cooperative, well kempt and well developed Orientation / Consciousness: awake, oriented to person, oriented to place and oriented to time HEENT normocephalic and moist oral mucous membranes Eyes PERRL, EOMs intact bilaterally and conjunctivae normal Neck nuchal rigidity, supple, no JVD and thyroid normal General: trachea midline Resp normal respiratory effort and clear to auscultation bilaterally Auscultation: Negative for rales, rhonchi or wheezes Cardio regular rate, regular rhythm, no murmurs, no rub and no gallops GI normal to inspection, nondistended, normoactive bowel sounds, soft to palpation, non-tender and non-distended Extremity no clubbing, cyanosis or edema Skin no rashes or lesions noted General Skin Exam: no breakdown Neuro oriented x3, CN's II-XII intact bilaterally, no focal motor deficits and no sensory deficits noted Sensorium / Orientation: awake and alert Speech: speech normal Psych thought process normal and affect normal Assessment & Plan Assessment/Plan (1) Pneumonia due to 2019 novel coronavirus: PLAN: 1. COVID-19 pneumonia-continue dexamethasone, patient is out of the window for remdesivir. Patient had outpatient monoclonal antibodies given #2 acute hypoxic respiratory failure-pulse ox will be monitored, it appears at this time that the patient's respiratory status is not declining. Patient is cooperating with current treatment. Charges/Coding Visit Charges Inpatient E&M: 56002 Subs Hosp L2
[2021-06-19] MEDS: MELATONIN 3 MG TABLET PO (21:50)
[2021-06-19] MEDS: Temazepam 15 MG Capsule PO (22:32)
[2021-06-20] VITALS (11 sets, daily range): BP systolic 111–120; BP diastolic 62–76; PULSE 60–88; RESP 16–20; TEMP 36.4–36.8; O2SAT 93–98
[2021-06-20] MEDS: dexAMETHasone 4 MG Tablet 6 MG PO (11:06)
[2021-06-20] MEDS: Enoxaparin 30 MG/0.3 ML Syringe SC ×2 (11:06→20:06)
--- NOTE | 2021-06-20 19:47 | PCM.PN.HOSP ---
Subjective Subjective Patient was seen and examined today, he remains on Airvo, at rest he appears to be comfortable however. Objective Data Objective Data Vital Signs: Vital Signs Temp Pulse Resp BP Pulse Ox 98.3 F 64 17 120/73 93 06/20/21 14:01 06/20/21 15:52 06/20/21 15:52 06/20/21 14:01 06/20/21 15:52 Oxygen Flow Rate (L/min) 50 Oxygen Delivery Method Airvo Weight: 101.5 kg Body Mass Index (BMI) 33.7 Intake & Output: Intake and Output for Last 24 Hours 06/18/21 06/19/21 06/20/21 23:59 23:59 23:59 Intake Total 750 / 750 350 / 550 500 / 500 Output Total 1100 / 1100 750 / 1075 1125 / 1125 Balance -350 / -350 -400 / -525 -625 / -625 Lab / Micro Data Result Diagrams: 06/18/21 07:35 06/18/21 07:35 Micro: Microbiology 06/17/21 18:30 Sputum, Expectorated/Coughed Gram Stain - Final 06/17/21 18:30 Sputum, Expectorated/Coughed Respiratory Culture - Final 06/17/21 09:35 Blood Culture (Wb) #2 - No Site/Description Given Blood Culture - Preliminary No growth in 48 hours. 06/17/21 09:10 Blood Culture (Wb) - Anticubital Left Blood Culture - Preliminary No growth in 48 hours. Physical Exam Const alert, oriented x3, no apparent distress and healthy appearing General Appearance: cooperative, well kempt and well developed Orientation / Consciousness: awake, oriented to person, oriented to place and oriented to time HEENT normocephalic and moist oral mucous membranes Eyes PERRL, EOMs intact bilaterally and conjunctivae normal Neck nuchal rigidity, supple, no JVD and thyroid normal General: trachea midline Resp normal respiratory effort, no retractions, no use of accessory muscles and clear to auscultation bilaterally Auscultation: Negative for rales, rhonchi or wheezes Cardio regular rate, regular rhythm, S1 normal heart sound, S2 normal heart sound, no murmurs, no rub and no gallops GI normal to inspection, nondistended, normoactive bowel sounds, soft to palpation, non-tender and non-distended Extremity no clubbing, cyanosis or edema Skin no rashes or lesions noted General Skin Exam: no breakdown Neuro oriented x3, CN's II-XII intact bilaterally, no focal motor deficits and no sensory deficits noted Sensorium / Orientation: awake and alert Speech: speech normal Psych thought process normal and affect normal Assessment & Plan Assessment/Plan (1) Pneumonia due to 2019 novel coronavirus: PLAN: 1. COVID-19 pneumonia-continue dexamethasone, patient is out of the window for remdesivir. Patient had outpatient monoclonal antibodies given. I do not think the patient would benefit from baricitinib at this time. #2 acute hypoxic respiratory failure-pulse ox will be monitored, it appears at this time that the patient's respiratory status is not declining. Patient is cooperating with current treatment. Charges/Coding Visit Charges Inpatient E&M: 65963 Subs Hosp L2
[2021-06-20] MEDS: Temazepam 15 MG Capsule PO (20:14)
[2021-06-20] MEDS: MELATONIN 3 MG TABLET PO (20:14)
[2021-06-21] VITALS (12 sets, daily range): BP systolic 115–147; BP diastolic 68–80; PULSE 50–76; RESP 18–24; TEMP 36.6–37.1; O2SAT 94–98
--- NOTE | 2021-06-21 01:04 | NURSING ---
Airvo decreased to 68% with 50l. Pt awake. Pt said he coughed up a bunch. Encourage pt to get off his back and prone or side to side
--- NOTE | 2021-06-21 03:05 | NURSING ---
Pt tolerating airvo decreased to 50l fi02 at 64%. Pt continues to lay on side and prone
[2021-06-21] MEDS: Enoxaparin 30 MG/0.3 ML Syringe SC ×2 (09:01→21:01)
[2021-06-21] MEDS: dexAMETHasone 4 MG Tablet 6 MG PO (09:01)
--- NOTE | 2021-06-21 19:03 | PN.HOSP_ITS ---
Subjective Subjective Patient was seen and examined today, he has no complaints of any shortness of breath at rest. Patient is now on high flow oxygen at 11 L/min and he appears comfortable. Patient has no complaints of any chest pain, fevers, or chills. Objective Data Objective Data Vital Signs: Vital Signs Temp Pulse Resp BP Pulse Ox 98.7 F 76 18 115/68 97 06/21/21 15:00 06/21/21 15:00 06/21/21 15:00 06/21/21 15:00 06/21/21 15:00 Oxygen Flow Rate (L/min) 11 Oxygen Delivery Method High Flow Weight: 101.2 kg Body Mass Index (BMI) 33.7 Intake & Output: Intake and Output for Last 24 Hours 06/19/21 06/20/21 06/21/21 23:59 23:59 23:59 Intake Total 350 / 550 1260 / 1260 340 / 340 Output Total 750 / 1075 1775 / 1775 250 / 250 Balance -400 / -525 -515 / -515 90 / 90 Lab / Micro Data Result Diagrams: 06/18/21 07:35 06/18/21 07:35 Micro: Microbiology 06/17/21 18:30 Sputum, Expectorated/Coughed Gram Stain - Final 06/17/21 18:30 Sputum, Expectorated/Coughed Respiratory Culture - Final 06/17/21 09:35 Blood Culture (Wb) #2 - No Site/Description Given Blood Culture - Preliminary No growth in 48 hours. 06/17/21 09:10 Blood Culture (Wb) - Anticubital Left Blood Culture - P reliminary No growth in 48 hours. Physical Exam Const alert, oriented x3, no apparent distress and healthy appearing General Appearance: cooperative, well kempt and well developed Orientation / Consciousness: awake, oriented to person, oriented to place and o riented to time HEENT normocephalic and moist oral mucous membranes Eyes PERRL, EOMs intact bilaterally and conjunctivae normal Neck nuchal rigidity, supple, no JVD and thyroid normal General: trachea midline Resp normal respiratory effort and clear to auscultation bilaterally Auscultation: Negative for rales, rhonchi or wheezes Cardio regular rate, regular rhythm, no murmurs, no rub and no gallops GI normal to inspection, nondistended, normoactive bowel sounds, soft to palpation, non-tender and non-distended Extremity no clubbing, cyanosis or edema Skin no rashes or lesions noted General Skin Exam: no breakdown Neuro oriented x3, CN's II-XII intact bilaterally, no focal motor deficits and no sensory deficits noted Sensorium / Orientation: awake and alert Speech: speech normal Psych thought process normal and affect normal Assessment & Plan Assessment/Plan (1) Pneumonia due to 2019 novel coronavirus: PLAN: 1. COVID-19 pneumonia-continue dexamethasone, patient was not a candidate for remdesivir due to timing of the illness. #2 acute hypoxic respiratory failure-pulse ox will be monitored, it appears at this time that the patient's respiratory status is not declining. Patient is cooperating with current treatment. Charges/Coding Visit Charges Inpatient E&M: 79531 Subs Hosp L2
[2021-06-21] MEDS: Temazepam 15 MG Capsule PO (21:06)
[2021-06-21] MEDS: MELATONIN 3 MG TABLET PO (21:06)
[2021-06-22] VITALS (11 sets, daily range): BP systolic 114–141; BP diastolic 58–75; PULSE 60–103; RESP 18–20; TEMP 36.4–37.1; O2SAT 89–97
[2021-06-22] MEDS: Enoxaparin 30 MG/0.3 ML Syringe SC ×2 (09:43→20:41)
--- NOTE | 2021-06-22 20:38 | PCM.PN.HOSP ---
Subjective Subjective Patient was seen and examined today, his oxygen has been able to be weaned down to 4 L at this time, he will need a walking pulse oximetry tomorrow to see if he is capable of going home on home O2. Patient does not complain of any fevers or chills or chest pain. Objective Data Objective Data Vital Signs: Vital Signs Temp Pulse Resp BP Pulse Ox 97.5 F L 78 20 H 115/68 93 06/22/21 18:11 06/22/21 18:11 06/22/21 18:11 06/22/21 18:11 06/22/21 18:11 Oxygen Flow Rate (L/min) 4 Oxygen Delivery Method Nasal Cannula Weight: 102 kg Body Mass Index (BMI) 33.7 Intake & Output: Intake and Output for Last 24 Hours 06/20/21 06/21/21 06/22/21 23:59 23:59 23:59 Intake Total 1260 / 1260 340 / 340 Output Total 1775 / 1775 650 / 650 Balance -515 / -515 -310 / -310 Lab / Micro Data Result Diagrams: 06/18/21 07:35 06/18/21 07:35 Micro: Microbiology 06/17/21 09:35 Blood Culture (Wb) #2 - No Site/Description Given Blood Culture - Final No growth in 5 days. 06/17/21 09:10 Blood Culture (Wb) - Anticubital Left Blood Culture - Final No growth in 5 days. 06/17/21 18:30 Sputum, Expectorated/Coughed Gram Stain - Final 06/17/21 18:30 Sputum, Expectorated/Coughed Respiratory Culture - Final Physical Exam Const alert, oriented x3, no apparent distress and healthy appearing General Appearance: cooperative, well kempt and well developed Orientation / Consciousness: awake, oriented to person, oriented to place and oriented to time HEENT normocephalic and moist oral mucous membranes Eyes PERRL, EOMs intact bilaterally and conjunctivae normal Neck nuchal rigidity, supple, no JVD and thyroid normal General: trachea midline Resp normal respiratory effort and clear to auscultation bilaterally Auscultation: Negative for rales, rhonchi or wheezes Cardio regular rate, regular rhythm, no murmurs, no rub and no gallops GI normal to inspection, nondistended, normoactive bowel sounds, soft to palpation, non-tender and non-distended Extremity no clubbing, cyanosis or edema Skin no rashes or lesions noted General Skin Exam: no breakdown Neuro oriented x3, CN's II-XII intact bilaterally, no focal motor deficits and no sensory deficits noted Sensorium / Orientation: awake and alert Speech: speech normal Psych thought process normal and affect normal Assessment & Plan Assessment/Plan (1) Pneumonia due to 2019 novel coronavirus: PLAN: 1. COVID-19 pneumonia-continue dexamethasone, patient was not a candidate for remdesivir due to timing of the illness. Patient's overall condition appears to be improving. #2 acute hypoxic respiratory failure-pulse ox will be monitored, it appears at this time that the patient's respiratory status is not declining. Patient is cooperating with current treatment. Patient will need a walking pulse oximetry tomorrow and if it is 6 L or less he could be discharged home. Charges/Coding Visit Charges Inpatient E&M: 59776 Subs Hosp L2
[2021-06-22] MEDS: Menthol/Lanolin/Calamine/Znox 113 GM Tube 1 APPLIC TOPICAL (20:40)
[2021-06-22] MEDS: MELATONIN 3 MG TABLET PO (20:41)
[2021-06-22] MEDS: Temazepam 15 MG Capsule PO (20:41)
[2021-06-23 02:14] VITALS: BP 110/50; PULSE 57; RESP 18; TEMP 36.6; O2SAT 94
[2021-06-23 09:04] VITALS: BP 119/70; PULSE 87; RESP 18; TEMP 36.7; O2SAT 93
[2021-06-23 09:06] VITALS: O2SAT 2; O2SAT 4; O2SAT 88; O2SAT 93
[2021-06-23] MEDS: Enoxaparin 30 MG/0.3 ML Syringe SC (09:25)
[2021-06-23] MEDS: Menthol/Lanolin/Calamine/Znox 113 GM Tube 1 APPLIC TOPICAL (09:25)
--- NOTE | 2021-06-23 12:05 | PCM.DC.SUM ---
Providers Date of Admission: 06/17/21 Primary Care Physician: No Primary Care Phys Reason For Visit: COVID Diagnosis Discharge Diagnosis (1) Pneumonia due to 2019 novel coronavirus: Status: Acute Code(s): U07.1 - COVID-19; J12.82 - Pneumonia due to coronavirus disease 2019 Medications at Discharge Home Medications dexamethasone [Decadron] 6 mg PO DAILY 10 Days #10 tab 06/12/21 Hospital Course Operations None Summary of Care Provided Minutes Spent on Discharge: 37 Hospital Course: Mr. Eldridge is a 60-year-old white male presents the emergency department which [facility] on 06/17/2021 with shortness of breath. He reported that his shortness of breath had been worsening. He started having Covid symptoms around 06/04/2021 and then had a monoclonal antibody infusion following. He is unvaccinated. He presented to the hospital previously on 06/12/2021 and was discharged home on supplemental oxygen at 4 L and on Decadron as well. He had been compliant with his Decadron and oxygen. He presented to the hospital because his oxygen requirement had been increasing at home. He reported on admission that he felt fine he denied any fevers or chills. A CTA was performed on admission was negative for PE but showed bilateral multifocal pneumonia. He was treated with Decadron on admission but is out of the window for receiving remdesivir. He was treated with supplemental oxygen, incentive spirometry and Pep therapy as well. He did require air Vo on admission and was compliant throughout his hospitalization with prone lying and pulmonary toileting. By a 06/21/2021 he was able to be weaned to 11 L nasal cannula and then 4 L nasal cannula by 06/22/2021. He remained stable on said 4 L on 06/23/2021 and was assessed at rest on ambulation for oxygen requirements. He required 4 L to maintain oxygen saturations greater than 88% both with ambulation and rest. He already had oxygen at home and was at 4 L prior to admission. He had completed his Decadron therapy and therefore did not need any continued therapy after discharge. It was recommended that he follow-up with a primary care physician and was given referral to Dr. Lawrence as an outpatient. We did recommend that he continue oxygen until discontinuation by physician was made. You will need to continue quarantine through 06/24/2021. He was discharged home on 4 L nasal cannula at rest and with ambulation on 06/23/2021 in stable condition. Discharge diagnoses: Acute hypoxic respiratory failure COVID-19 pneumonia Steroid-induced leukocytosis Thrombocytosis Obesity-BMI 33.3 Physical Exam Const alert, oriented x3 and no apparent distress Constitutional Narrative: Upper middle-aged white male lying prone in his bed, appears comfortable, nontoxic, very pleasant General Appearance: cooperative, comfortable, well kempt and well developed Orientation / Consciousness: awake Nutritional Appearance: obese HEENT normocephalic, head/scalp atraumatic, hearing grossly normal bilaterally and moist oral mucous membranes HEENT Narrative: No thrush, Mallampati 2-3 Eyes PERRL, EOMs intact bilaterally and conjunctivae normal Eyes Narrative: No scleral icterus Neck no lymphadenopathy, supple and no JVD Neck Narrative: Trachea midline, no thyroid enlargement Resp normal respiratory effort, no retractions, no use of accessory muscles and clear to auscultation bilaterally Resp Narrative: Diminished but clear with no adventitious breath sounds and no signs of respiratory distress Auscultation: Negative for crackles, rales, rhonchi or wheezes Cardio regular rate, regular rhythm, S1 normal heart sound, S2 normal heart sound, no murmurs, no rub, no gallops, no clicks and no JVD GI normal to inspection, nondistended, normoactive bowel sounds, soft to palpation, non-tender and non-distended Extremity normal to inspection and no clubbing, cyanosis or edema Skin no rashes or lesions noted and skin turgor normal Neuro oriented x3, CN's II-XII intact bilaterally, moves all extremities and no focal motor deficits Sensorium / Orientation: awake and alert Speech: speech normal Psych affect normal Weight / BMI Weight Weight: 102.33 kg Body Mass Index (BMI) 33.7 ABG / Lab / Microbiology Data Result Diagrams: 06/18/21 07:35 06/18/21 07:35 Microbiology: Microbiology 06/17/21 09:35 Blood Culture (Wb) #2 - No Site/Description Given Blood Culture - Final No growth in 5 days. 06/17/21 09:10 Blood Culture (Wb) - Anticubital Left Blood Culture - Final No growth in 5 days. 06/17/21 18:30 Sputum, Expectorated/Coughed Gram Stain - Final 06/17/21 18:30 Sputum, Expectorated/Coughed Respiratory Culture - Final D/C Instructions Discharge Diet: No restrictions Meaningful Use Info Meaningful Use Diagnoses (Choose all that apply): None applicable Discharge Plan Admission Admit Date/Time: 06/17/21 12:48 Primary Reason for Your Visit: Shortness of breath/COVID-19 pneumonia Attending Provider: Marilin Kidd Primary Care Provider: Care Physician,No Primary Instructions Additional Instructions / Restrictions: 1. You have completed Decadron 2. Quarantine until 06/24/2021 3. Continue supplemental oxygen as ordered until recommended wean or discontinuation by physician 4. Recommend vaccination 90 days from monoclonal antibody dosing Discharge Orders/Prescriptions Prescriptions: No Action dexamethasone [Decadron] 6 mg tablet 6 mg PO DAILY 10 Days Qty: 10 RF: 0 Referrals / Follow Up: Brittany Lawrence MD [STAFF PHYSICIAN] - Within 1 Month (New Patient) Care Physician,No Primary [Primary Care Provider] - Disposition Disposition (needs filled in before D/C Order can be placed): Home, Self Care Charges/Coding Visit Charges Inpatient E&M: 29645 Disch Hosp
[2021-06-23 13:55] VITALS: BP 139/88; PULSE 80; RESP 18; TEMP 37; O2SAT 98
== END 2021-06-23 14:09 | disposition home or self-care (01) | DRG 177 ==
LOC: ED 10:52 → MS3 12:57
PROVIDERS: Admitting Provider Family Medicine; Emergency Provider Emergency Medicine; Visit Provider Internal Medicine
DX: U07.1 COVID-19 (principal); J12.82 Pneumonia due to coronavirus disease 2019; J96.01 Acute respiratory failure with hypoxia; Z28.3 Underimmunization status; D72.829 Elevated white blood cell count, unspecified; T38.0X5A Adverse effect of glucocorticoids and synthetic analogues, initial encounter; E66.9 Obesity, unspecified; Z68.33 Body mass index [BMI] 33.0-33.9, adult
CPT/HCPCS: 36415; 71275; 80048; 80053; 83605; 84145; 84484; 85025; 87040; 87070; 87205; 93005; 94002; 94660; 94667; 94668; 99251; 99285; Q9967; A4216; G0463; J1940

== ENCOUNTER → 2021-07-06 08:08 | Outpatient (CLI) | payer BC, SELFPAY ==
[2021-07-06 10:19] LABS: Anion Gap 5 (5-15); BUN 17 mg/dL (7-18); BUN/Creat Ratio 16.8 RATIO (10-20); Calcium,Total 8.7 mg/dL (8.5-10.1); Chloride 111 mmol/L (98-107); Cholesterol 216 mg/dL (200); Creatinine, Serum 1.01 mg/dL (0.70-1.30); EST Glomerular Filtration Rate 80 mL/min (>60); Est Glom Filt Rate - Afr Amer 97 mL/min (>60); Glucose 118 mg/dL (74-106); High Density Lipoprotein 46 mg/dL; PSA,Total - Annual Screen 2.68 ng/mL (0.00-4.00); Potassium 3.8 mmol/L (3.5-5.1); Sodium Level 142 mmol/L (136-145); Triglycerides 173 mg/dL; Very Low Density Lipoprotein 35 mg/dL (5-40)
== END ==
PROVIDERS: PCP Family Medicine; Referring Provider Family Medicine; Visit Provider Family Medicine
DX: Z00.00 Encounter for general adult medical examination without abnormal findings (principal)
CPT/HCPCS: 36415; 80048; 80061; 82306; 84153; G0103

== ENCOUNTER → 2021-11-20 | Outpatient (CLI) | payer BC, SELFPAY ==
--- NOTE | 2021-11-20 17:15 | CT_ITS ---
INDICATION: POST COVID TREATMENT EXAMINATION: CT Chest W/O Contrast Injection TECHNIQUE: Helically acquired images were obtained of the chest without IV contrast. A radiation dose optimization technique was used for this scan. COMPARISON: 06/17/2021. FINDINGS: Lungs: Few scattered groundglass opacities remain. Mediastinum: The cardiomediastinal silhouette is not enlarged. No mediastinal, hilar or axillary adenopathy. Mild aortic arch and coronary artery calcifications. Bovine arch. Pleura: Unremarkable Bones/Soft tissues: Mild scattered degenerative changes of the visualized spine. Upper abdomen: Few gallstones. CT/Chest without Contrast IMPRESSION: Few scattered groundglass opacities remain consistent with resolving pneumonia. Cholelithiasis. Electronically Signed: Orlin Sigala MD at 21:01 EDT ,
== END | disposition home or self-care (01) ==
LOC: CT 17:12
PROVIDERS: PCP Family Medicine; Visit Provider Internal Medicine Pulmonary Disease
DX: G47.10 Hypersomnia, unspecified (principal); U07.1 COVID-19; R09.02 Hypoxemia
CPT/HCPCS: 71250

== ENCOUNTER → 2022-06-21 | Outpatient (CLI) | payer BC, SELFPAY ==
[2022-06-21 10:55] LABS: Anion Gap 2 (5-15); BUN 21 mg/dL (7-18); BUN/Creat Ratio 22.2 RATIO (10-20); Calcium,Total 9.1 mg/dL (8.5-10.1); Chloride 108 mmol/L (98-107); Cholesterol 190 mg/dL (200); Creatinine, Serum 0.95 mg/dL (0.70-1.30); EST Glomerular Filtration Rate 86 mL/min (>60); Est Glom Filt Rate - Afr Amer 104 mL/min (>60); Glucose 118 mg/dL (74-106); High Density Lipoprotein 50 mg/dL; PSA,Total - Annual Screen 2.18 ng/mL (0.00-4.00); Sodium Level 140 mmol/L (136-145); Triglycerides 123 mg/dL; Very Low Density Lipoprotein 25 mg/dL (5-40)
== END | disposition home or self-care (01) ==
LOC: MTLAB 08:04
PROVIDERS: PCP Family Medicine; Referring Provider Family Medicine; Visit Provider Family Medicine
DX: Z00.00 Encounter for general adult medical examination without abnormal findings (principal)
CPT/HCPCS: 36415; 80048; 80061; 84153; G0103

== ENCOUNTER → 2023-12-29 | Outpatient (CLI) | payer BC, SELFPAY ==
[2023-12-29 11:43] LABS: ALB/GLOB Ratio 1.1 RATIO (0.9-2.4); AST(SGOT) 26 U/L (15-37); Alanine Aminotransfer ALT/SGPT 22 U/L (16-61); Albumin, Serum 3.8 g/dL (3.2-5.0); Alkaline Phosphatase 67 U/L (45-117); Anion Gap 6 (5-15); BUN 22 mg/dL (7-18); BUN/Creat Ratio 24.1 RATIO (10-20); Calcium,Total 8.8 mg/dL (8.5-10.1); Chloride 106 mmol/L (98-107); Cholesterol 219 mg/dL (200); Creatinine, Serum 0.91 mg/dL (0.70-1.30); EST Glomerular Filtration Rate 89 mL/min (>60); Est Glom Filt Rate - Afr Amer 108 mL/min (>60); Globulin 3.6 g/dL (2.2-4.2); Glucose 87 mg/dL (74-106); High Density Lipoprotein 64 mg/dL; PSA,Total- Diagnostic 2.45 ng/mL (0.0-4.0); Potassium 4.3 mmol/L (3.5-5.1); Protein, Total 7.4 g/dL (6.4-8.2); Sodium Level 136 mmol/L (136-145); Thyroid Stim Hormone (TSH) 1.46 uIU/mL (0.358-3.74); Triglycerides 70 mg/dL; Very Low Density Lipoprotein 14 mg/dL (5-40)
== END | disposition home or self-care (01) ==
LOC: MFPLAB 09:07
PROVIDERS: PCP Family Medicine; Visit Provider Family Medicine
DX: Z00.00 Encounter for general adult medical examination without abnormal findings (principal)
CPT/HCPCS: 36415; 80053; 80061; 84153; 84443

== ENCOUNTER → 2024-04-22 | Outpatient (CLI) | payer BC, SELFPAY ==
[2024-04-26 12:08] LABS: Alternaria alternata <0.10 kU/L (Class 0); Aspergillus fumigatus <0.10 kU/L (Class 0); Bahia Grass <0.10 kU/L (Class 0); Bermuda Grass <0.10 kU/L (Class 0); Cat Hair/Dander, Standard <0.10 kU/L (Class 0); Cedar, Mountain <0.10 kU/L (Class 0); Cladosporium herbarum <0.10 kU/L (Class 0); Cockroach, American <0.10 kU/L (Class 0); D farinae Mite <0.10 kU/L (Class 0); D pteronyssinus <0.10 kU/L (Class 0); Dog Epithelia <0.10 kU/L (Class 0); Elm, American White 0.17 kU/L (Class 0/I); Hazelnut Tree <0.10 kU/L (Class 0); Hickory, White 1.49 kU/L (Class III); Johnson Grass <0.10 kU/L (Class 0); Maple/Box Elder <0.10 kU/L (Class 0); Mucor racemosus <0.10 kU/L (Class 0); Mugwort <0.10 kU/L (Class 0); Mulberry, White <0.10 kU/L (Class 0); Nettle <0.10 kU/L (Class 0); Oak, White <0.10 kU/L (Class 0); Penicillium chrysogen <0.10 kU/L (Class 0); Pigweed, Rough <0.10 kU/L (Class 0); Plantain, English <0.10 kU/L (Class 0); Ragweed, Short/Common <0.10 kU/L (Class 0); Sheep Sorrel(Dock) <0.10 kU/L (Class 0); Stemphylium herbarum <0.10 kU/L (Class 0); Sweet Gum <0.10 kU/L (Class 0); Sycamore, American <0.10 kU/L (Class 0)
== END | disposition home or self-care (01) ==
LOC: MFPLAB 16:33
PROVIDERS: PCP Family Medicine; Visit Provider Family Medicine
DX: Z01.82 Encounter for allergy testing (principal)
CPT/HCPCS: 36415; 86003

== ENCOUNTER → 2025-03-01 | Outpatient (CLI) | payer BC, SELFPAY ==
[2025-03-01 12:43] LABS: Anion Gap 10 (5-15); BUN 18 mg/dL (4-19); BUN/Creat Ratio 18.6 RATIO (10-20); Calcium,Total 8.9 mg/dL (7.6-11.0); Carbon Dioxide 22.7 mmol/L (21.0-32.0); Chloride 107 mmol/L (98-108); Cholesterol 191 mg/dL (<=200); Glucose 115 mg/dL (70-99); Low Density Lipoprotein Calc. 127 mg/dL; Potassium 4.3 mmol/L (3.3-5.1); Triglycerides 58 mg/dL; Very Low Density Lipoprotein 12 mg/dL (5-40); cholesterol:hdl ratio screen 3.67
[2025-03-01 13:26] LABS: PSA,Total - Annual Screen 2.59 ng/mL (0.02-4.00)
== END | disposition home or self-care (01) ==
LOC: MFPLAB 09:39
PROVIDERS: PCP Family Medicine; Referring Provider Family Medicine; Visit Provider Family Medicine
DX: Z00.00 Encounter for general adult medical examination without abnormal findings (principal)
CPT/HCPCS: 36415; 80048; 80061; 84153; G0103